=== PATIENT | female | born 1935 | race Caucasian/White ===

== ENCOUNTER 2017-12-21 23:20 | Inpatient (IN) | payer MEDICARE ==
[~2017-12-21 23:20] MED LIST changes: -ACET-2146 PO; -ACET-3017 PO; -ACET500T68 PO; -BACL-1 PO; -DULO60CA7 PEG; -LORA10CA3 PO; -NAPR500T75 PO; -OXYC5CAP21 PO
--- NOTE | 2017-12-21 23:26 | ER Report ---
History and Physical Time Seen By MD: 23:26 HPI/ROS This is an 82-year-old female with a past medical history of high blood pressure , essential tremor requiring deep brain stimulator, and a remote history of breast cancer. She bent forward to show her dog the dog door late last night when she lost her balance and fell forward onto her left shoulder. She did not strike her head. There was no loss of consciousness. She was brought in by paramedics complaining of 10 out of 10 pain in her left shoulder. Remainder of the 14 system rev: Yes Allergies: Coded Allergies: benazepril HCl (Verified Allergy, Unknown, COUGHING, 12/21/17) Uncoded Allergies: statins (Adverse Reaction, Intermediate, myalgia, 03/10/16) Home Meds Active Scripts Amlodipine Besylate (AMLODIPINE BESYLATE) 10 Mg Tablet, 1 TAB PO HS for 90 Days , #90 TAB 4 Refills Prov:AMINA SAVAGE MD 05/20/17 Losartan Potassium (LOSARTAN POTASSIUM) 100 Mg Tablet, 1 TAB PO QAM for 90 Days , #90 TAB 4 Refills Prov:AMINA SAVAGE MD 05/20/17 Reported Medications Loratadine (CLARITIN) 10 Mg Capsule, 10 MG PO PRN, CAPSULE 12/21/17 Baclofen (BACLOFEN) 10 Mg Tablet, 10 MG PO BID, #30 TAB 12/21/17 Acetaminophen (TYLENOL EXTRA STRENGTH) 500 Mg Tablet, 500 MG PO TID, TAB 12/21/17 Duloxetine HCl (Duloxetine HCl) 60 Mg Capsule.dr, 60 MG PEG DAILY 12/21/17 Aspirin (ASPIR 81) 81 Mg Tablet.dr, 1 TAB PO QDAY, TAB 03/18/17 Discontinued Scripts Fluticasone Prop 50 Mcg Ns (FLONASE 50 MCG NS) 16 Gm [place].susp, 1 SPRAY NS BID for 30 Days, #1 BOT 3 Refills Prov:AMINA SAVAGE MD 08/05/17 Propranolol Hcl (PROPRANOLOL HCL) 40 Mg Tablet, 1 TAB PO BID for 90 Days, #180 TAB 3 Refills Prov:AMINA SAVAGE MD 05/20/17 Duloxetine Hcl (CYMBALTA) 60 Mg Capsule.dr, 1 TAB PO QPM for 90 Days, #90 CAP 4 Refills Prov:AMINA SAVAGE MD 05/20/17 Capsaicin (CAPSAICIN) 42.5 Gm Cream..g., 42.5 GM TP QID for 90 Days, #3 TUBE 3 Refills Prov:AMINA SAVAGE MD 05/20/17 Reviewed Nurses Notes: Yes Old Medical Records Reviewed: Yes Hx Smoking: No Smoking Status: Never Smoker Hx Substance Use Disorder: No Hx Alcohol Use: Yes Constitutional Vital Sign - Last 24 Hours 12/21/17 12/21/17 12/22/17 12/22/17 23:21 23:38 00:30 00:34 Temp 97.6 Pulse 67 Resp 16 B/P (MAP) 170/80 167/89 (115) 170/83 (112) Pulse Ox 88 O2 Delivery Nasal Cannula O2 Flow Rate 2.0 12/22/17 12/22/17 12/22/17 12/22/17 00:35 00:38 00:40 00:45 Pulse 60 66 Resp 10 15 B/P (MAP) 181/95 (123) 190/84 (119) 190/105 (133) Pulse Ox 98 88 12/22/17 12/22/17 12/22/17 12/22/17 00:50 00:55 01:00 01:05 Pulse 65 64 ??? 61 Resp 15 31 12 23 B/P (MAP) 185/104 (131) 187/90 (122) 179/91 (120) 175/92 (119) Pulse Ox 86 100 100 100 12/22/17 12/22/17 12/22/17 12/22/17 01:10 01:15 01:16 01:20 Pulse 58 Resp 61 B/P (MAP) 193/102 (132) 168/141 (150) 165/98 (120) 182/94 (123) Pulse Ox 100 12/22/17 12/22/17 12/22/17 12/22/17 01:25 01:30 01:35 01:40 Pulse 60 64 Resp 21 11 14 B/P (MAP) 170/90 (116) 185/77 (113) 132/93 (106) 178/75 (109) Pulse Ox 100 85 74 12/22/17 12/22/17 12/22/17 01:45 01:50 01:55 Pulse 62 58 60 Resp 12 22 14 B/P (MAP) 183/99 (127) 169/78 (108) 183/91 (121) Pulse Ox 100 97 98 Physical Exam General Appearance: The patient is alert, has no immediate need for airway protection and no current signs of toxicity. Neck: Neck is supple and non tender Eyes: Pupils equal and round no injection. Respiratory: Chest is non tender, lungs are clear to auscultation. Cardiac: regular rate and rhythm Gastrointestinal: Abdomen is soft and non tender, no masses, bowel sounds normal. Musculoskeletal: TTP of the left shoulder with obvious dislocation. No TTP of the humerus or elbow. Skin: No rashes or lesions. Neuro: n/v in tact DIFFERENTIAL DIAGNOSIS: After history and physical exam differential diagnosis was considered for fracture, dislocation, vascular injury, other traumatic injuries Medical Decision Making ED Course/Re-evaluation ED Course Physician 82-year-old female who fell onto her left shoulder while she was trying to show her dog the dog door. Only complaint is pain in her left shoulder. There is an anterior inferior dislocation of the left shoulder. Multiple attempts were made by me to reduce the dislocated shoulder. She was sedated with propofol twice with adequate sedation. During both of the attempts the humeral head appeared to not move from its dislocated position. I spoke with Dr. Macedo about the dislocation. The plan will be to admit the patient to the hospitalist service and likely take her to the operating room tomorrow for a possible open reduction. I discussed this plan with both the patient and her family. The patient and her family are amenable to the plan. I also performed a hematoma block into the left shoulder joint to try to give the patient some relief from the pain in her shoulder. She is otherwise stable. Procedure Procedure: Procedural sedation. A pre-sedation evaluation was completed on the patient at 0115. Patient is an appropriate candidate for procedural sedation. The risks of the sedation were discussed with the patient. A time out was completed. The patient was reevaluated immediately prior to initiation of sedation. The patient was sedated with propofol. The patient was monitored with continuous pulse oximetry and clinical research monitor. There were no complications and no significant hypoxemia. I remained at the bedside for the sedation. The total time I spent in the procedural sedation was 45minutes. Post sedation evaluation: Patient was alert and cooperative, hemodynamically stable with appropriate respiratory status, temperature and pain control without ongoing nausea and vomiting. Procedure: Dislocation reduction. The shoulder was attempted to be reduced in the usual fashion without complications. Post reduction the patient's neurovascular exam is normal. Post reduction x-ray demonstrates reduction of the jointstill with an anterioinferior dislocation The procedure was performed by myself. Hematoma Block: I performed a hematoma block to the left glenohumeral joint using a combination of 5ml of 1% lidocaine and 5ml of bupivacaine. There was moderate relief of pain after the block. Decision to Disposition Date: Dec 22, 2017 Decision to Disposition Time: 01:56 Depart Departure Latest Vital Signs Vital Signs Date Time Temp Pulse Resp B/P (MAP) Pulse Ox O2 Delivery O2 Flow Rate FiO2 12/22/17 01:55 60 14 183/91 (121) 98 12/21/17 23:38 2.0 12/21/17 23:21 97.6 Nasal Cannula Impression: Primary Impression: Dislocation of left shoulder joint Additional Impression: Fall Condition: Improved Disposition: Admitted from ER Referrals: AMINA SAVAGE MD (PCP) Problem Qualifiers Primary Impression: Dislocation of left shoulder joint Encounter type: initial encounter Qualified Codes: S43.005A - Unspecified dislocation of left shoulder joint, initial encounter Additional Impression: Fall Encounter type: initial encounter Qualified Codes: W19.XXXA - Unspecified fall, initial encounter VAISHNAVI MARY MD Dec 21, 2017 23:26
[2017-12-21] MEDS ORDERED: DULO60CA7 PEG (23:31)
[2017-12-21] MEDS ORDERED: ACET500T68 PO (23:31)
[2017-12-21] MEDS ORDERED: LORA10CA3 PO (23:31)
[2017-12-21] MEDS ORDERED: BACL-1 PO (23:31)
[2017-12-21] MEDS ORDERED: ONDANSETRON 4 MG/2 ML VIAL IVP ONE (23:40)
[2017-12-21] MEDS ORDERED: MORPHINE 4 MG/ML SDV IVP ONE (23:40)
[2017-12-22] VITALS (14 sets, daily range): BP systolic 146–185; BP diastolic 60–90
[2017-12-22] MEDS ORDERED: PROPOFOL EMUL 10MG/ML 20 ML VL IVP ONE
--- NOTE | 2017-12-22 00:17 | RADIOLOGY IMAGING REPORT ---
FACILITY: [facility] PATIENT NAME: Tiffany Long : 1935 MR: [id number] V: [id number] EXAM DATE: ORDERING PHYSICIAN: VAISHNAVI MARY TECHNOLOGIST: Location: [facility] Patient: Tiffany Long : 1935 Visit/Account:[id number] Date of Sevice: 12/21/2017 SHOULDER MIN 2 VIEWS LEFT HISTORY: Fall. Left shoulder pain. COMPARISON: None. Chest x-ray was performed concurrently. TECHNIQUE: AP and scapular Y views of the left shoulder. FINDINGS: There is anteroinferior glenohumeral dislocation. No fracture. Acromioclavicular joint is n ormal. There are surgical clips at the left axilla, and there is a battery pack projecting over the left low er chest. Lead terminates off the superior x-ray in the patient's neck. There is mild to moderate desiccation of the aorta. There is mild degenerative change of the spine. T he visible thorax is normal. IMPRESSION: 1. Anterior left glenohumeral dislocation. No fracture. Report Dictated By: Sun Parker at 12/22/2017 12:11 AM Report E-Signed By: Sun Parker at 12/22/2017 12:13 AM WSN:[id number]
--- NOTE | 2017-12-22 00:18 | RADIOLOGY IMAGING REPORT ---
FACILITY: [facility] PATIENT NAME: Tiffany Long : 1935 MR: [id number] V: [id number] EXAM DATE: ORDERING PHYSICIAN: VAISHNAVI MARY TECHNOLOGIST: [place] [facility] [place] Patient: Tiffany Long : 1935 Visit/Account:[id number] Date of Sevice: 12/21/2017 CHEST SINGLE AP 12/21/2017 23:38 hours. HISTORY: Fall. Left shoulder pain. COMPARISON: Chest x-rays 11/09/2016 and studies dating to 05/30/2006. Left shoulder x-rays were perform ed concurrently. TECHNIQUE: Portable AP view of the chest. FINDINGS: Tubes/lines/hardware: There are bilateral battery packs projecting at the right and left mid to lower chest, and leads terminate off the superior x-ray, overlying the patient's neck. There are surgical clips at the left axilla. Pulmonary: Right lung is clear. There is minimal atelectasis or scarring at the left base, unchanged. There is no pneumothorax or pleural effusion. Cardiomediastinal: Cardiac and mediastinal silhouettes are within normal limits. There is mild to mod erate aortic calcification. Bones/soft tissues: There is anteroinferior dislocation of the left humeral head compared to the jovany oid. No fracture. The lumbar spine angles to the left. There is a slight rightward curvature of the t horacic spine. The visible abdomen is normal. IMPRESSION: 1. No acute cardiopulmonary process. 2. Anterior left shoulder dislocation. Report Dictated By: Sun Parker at 12/22/2017 12:13 AM Report E-Signed By: Sun Parker at 12/22/2017 12:16 AM WSN:[id number]
[2017-12-22] MEDS ORDERED: MORPHINE 4 MG/ML SDV IVP ONE (01:05)
[2017-12-22] MEDS ORDERED: NS(*) 0.9% 1000 ML BAG 1,000 ML IV ONE (01:20)
[2017-12-22 02:30] LABS: PLATELET COUNT, AUTOMATED 195 K/uL (150-450)
[2017-12-22] MEDS ORDERED: NS(*) 0.9% 1000 ML BAG 1,000 ML IV PRN (02:55)
[2017-12-22] MEDS ORDERED: ONDANSETRON 4 MG/2 ML VIAL IVP PRN (02:55)
[2017-12-22] MEDS ORDERED: ACETAMINOPHEN 325 MG TAB PO PRN (02:55)
[2017-12-22] MEDS: MORPHINE 2 MG/ML SYR IVP PRN ×2 (03:48→09:42)
--- NOTE | 2017-12-22 05:46 | History & Physical ---
History of Present Illness Chief Complaint s/p Fall with L-shoulder pain History of Present Illness Mrs. Long is an 82-year-old female with a past medical history of high blood pressure, essential tremor requiring deep brain stimulator, and a remote history of breast cancer. She bent forward to show her dog the dog door late last night when she lost her balance and fell forward onto her left shoulder. She did not strike her head. There was no loss of consciousness. She was brought in by paramedics complaining of 10 out of 10 pain in her left shoulder. ER evaluation revealed that there was an anterior inferior dislocation of the left shoulder. Multiple attempts were made by the ER-MD to reduce the dislocated shoulder. She was sedated with propofol twice with adequate sedation. During both of the attempts the humeral head appeared to not move from its dislocated position. Dr. Castorena spoke with Dr. Macedo about the dislocation. The plan will be to admit the patient to the hospitalist service and likely take her to the operating room tomorrow for a possible open reduction. Dr. Castorena discussed this plan with both the patient and her family. The patient and her family are amenable to the plan. Dr. Castorena also performed a hematoma block into the left shoulder joint to try to give the patient some relief from the pain in her shoulder. She was otherwise stable. Post reduction x -ray demonstrates reduction of the joint still with an anterioinferior dislocation. I discussed the patient with Dr. Castorena and admitted the patient for further evaluation and management and possible surgical reduction of the shoulder in am. Patient is AAOx3 and denies any significant complaint. She denies having any syncopal episode or stroke. She has mild slurred speech but she said whenever she takes narcotics she gets like that. She denies any weakness of her U & LE. She denies dysphagia. History Home Meds Active Scripts Amlodipine Besylate (AMLODIPINE BESYLATE) 10 Mg Tablet, 1 TAB PO HS for 90 Days , #90 TAB 4 Refills Prov:AMINA SAVAGE MD 05/20/17 Losartan Potassium (LOSARTAN POTASSIUM) 100 Mg Tablet, 1 TAB PO QAM for 90 Days , #90 TAB 4 Refills Prov:AMINA SAVAGE MD 05/20/17 Reported Medications Loratadine (CLARITIN) 10 Mg Capsule, 10 MG PO PRN, CAPSULE 12/21/17 Baclofen (BACLOFEN) 10 Mg Tablet, 10 MG PO BID, #30 TAB 12/21/17 Acetaminophen (TYLENOL EXTRA STRENGTH) 500 Mg Tablet, 500 MG PO TID, TAB 12/21/17 Duloxetine HCl (Duloxetine HCl) 60 Mg Capsule.dr, 60 MG PEG DAILY 12/21/17 Aspirin (ASPIR 81) 81 Mg Tablet.dr, 1 TAB PO QDAY, TAB 03/18/17 Discontinued Scripts Fluticasone Prop 50 Mcg Ns (FLONASE 50 MCG NS) 16 Gm [place].susp, 1 SPRAY NS BID for 30 Days, #1 BOT 3 Refills Prov:AMINA SAVAGE MD 08/05/17 Propranolol Hcl (PROPRANOLOL HCL) 40 Mg Tablet, 1 TAB PO BID for 90 Days, #180 TAB 3 Refills Prov:AMINA SAVAGE MD 05/20/17 Duloxetine Hcl (CYMBALTA) 60 Mg Capsule.dr, 1 TAB PO QPM for 90 Days, #90 CAP 4 Refills Prov:AMINA SAVAGE MD 05/20/17 Capsaicin (CAPSAICIN) 42.5 Gm Cream..g., 42.5 GM TP QID for 90 Days, #3 TUBE 3 Refills Prov:AMINA SAVAGE MD 05/20/17 Allergies: Coded Allergies: benazepril HCl (Verified Allergy, Unknown, COUGHING, 12/21/17) Uncoded Allergies: statins (Adverse Reaction, Intermediate, myalgia, 03/10/16) Patient History: FH: COPD (chronic obstructive pulmonary disease) BROTHER OR SISTER FH: cancer FATHER, , Age:83 Hx Smoking: No Smoking Status: Never Smoker Caffeine Intake: Coffee, Tea Caffeine/Cups Per Day: 2 Hx Alcohol Use: Yes Alcohol Used: Beer, Wine Hx Substance Use Disorder: No Social Drug Use: Never Review of Systems Constitutional: No Fever, No Weight Loss, No Weight Gain, No Chills Neurological: Slurred Speech, No Syncope, No Confusion, No Weakness, No Dizziness Eyes: No Loss of Vision Cardiovascular: No Chest Pain, No Palpitations Respiratory: No Shortness of Breath, No Cough Gastrointestinal: No Nausea, No Vomiting, No Diarrhea, No Dysphagia, No Abdominal Pain Genitourinary: No Dysuria, No Hematuria Musculoskeletal: No Pain, No Sprain, No Strain Psychiatric: No Depression, No Anxiety Exam Vital Signs Vital Signs Date Time Temp Pulse Resp B/P (MAP) Pulse Ox O2 Delivery O2 Flow Rate FiO2 12/22/17 04:44 90 Nasal Cannula 2.0 12/22/17 02:46 97.4 71 14 181/79 (113) General Appearance: Alert, Awake, No Acute Distress, Afebrile Neuro: No Gross deficits (mild facial droop noted) Eyes: PERRLA ENT: Normal Cardiovascular: Normal Rhythm & Peripheral Pulses Respiratory: No Respiratory Distress GI: Abd Soft and Non-Tender Musculoskeletal: Other (decrease ROM of L-shoulder with tenderness) Extremities: Soft and Non Tender, Warm, Pulses Psych: Alert & Oriented X3, Appropriate Mood & Affect Medical Decision Making Data Points Result Diagram: 12/22/1720312/22/17203 reviewed Pre-Admit Course ED Medications reviewed Medical Record Review: Yes Assessment and Plan Problems: (1) Dislocation of left shoulder joint Status: Acute Assessment & Plan: I will admit the patient to Med/Surg unit for further evaluation and management I will Start Morphine Sulphate 2mg IN q4h as needed for pain I will start IVF NS at 60ml/h I will get orthopedic consult for dislocated L-shoulder I will place SCD's for DVTP If she demonstrate any neurological symptoms, I would get head CT scan to r/o CVA (2) Hypertension Status: Chronic Assessment & Plan: I will start Amlodipine 5mg po for her BP for now I will hold her Losartan 100mg po daily until her surgery I will hold her Norvasc 10mg po daily until her surgery I will keep her NPO for now and low salt diet after her surgery I will resume her home meds after her surgery (3) Slurred speech Status: Acute Assessment & Plan: I will closely watch her neurological symptoms and her speech I would obtain CT scan of the head if she demonstrate any neurological symptoms. Central Venous Access Medical Necessity for Access: IV Access, Medication Administration Time Spent on Plan of Care: < 30 min Copies to: AMINA SAVAGE MD Venous Thromboembolism VTE Risk Physician Assess for VTE Risk: Yes Patient's VTE Risk: Low VTE Diagnostic Test 2 Days Prior to Admit: No Antithrombotics Is Pt On Any Antithrombotics?: No Exam Sepsis Risk: No Definite Risk Problem Qualifiers (1) Dislocation of left shoulder joint: Encounter type: initial encounter Qualified Codes: S43.005A - Unspecified dislocation of left shoulder joint, initial encounter MARGOT BURROUGHS MD Dec 22, 2017 05:46
[2017-12-22] MEDS ORDERED: amLODIPine BESYL(*) 5 MG TAB PO ONE (06:15)
[2017-12-22 06:51] LABS: PLATELET COUNT, AUTOMATED 202 K/uL (150-450)
--- NOTE | 2017-12-22 08:36 | EKG ---
FACILITY: [facility] PATIENT NAME: OVIDIO FALLON : [id number] MR: [id number] V: [id number] EXAM DATE: ORDERING PHYSICIAN: VAISHNAVI MARY TECHNOLOGIST: KARLY Test Reason : PRE-OP SHOULDER Blood Pressure : / mmHG Vent. Rate : 061 BPM Atrial Rate : 061 BPM P-R Int : 186 ms QRS Dur : 074 ms QT Int : 454 ms P-R-T Axes : 078 046 072 degrees QTc Int : 457 ms Normal sinus rhythm Low voltage QRS No ST-T abnormalities When compared with ECG of 18-JUN-2015 19:44, Relativeliy unchanged Confirmed by JAGUAR CLEMENTE ([id number]) on 12/22/2017 11:28:12 AM Referred By: USMAN Confirmed By:JAGUAR CLEMENTE
[2017-12-22] MEDS ORDERED: NORMOSOL R SOLN(*) 1000 ML BAG 1,000 ML IV ONE (09:41)
[2017-12-22] MEDS ORDERED: FAMOTIDINE 20 MG TAB PO ONE (10:15)
[2017-12-22] MEDS ORDERED: LIDOCAINE/SOD BICARB 8.4% SYR ID ONE (10:45)
[2017-12-22] MEDS ORDERED: ceFAZolin(*) 2GM/D5W 50ML 50 ML IVPB ONE (14:15)
[2017-12-22] MEDS ORDERED: HYDROmorphone HCL 2 MG/ML SDV IVP ONE (14:35)
[2017-12-22] MEDS ORDERED: PROPOFOL EMUL(*) 10MG/ML 20 ML 20 ML ONE (14:55)
[2017-12-22] MEDS ORDERED: SUCCINYLCHOL CHL 200MG/10ML VL ONE (14:55)
[2017-12-22] MEDS ORDERED: ACETAMIN/CODEINE #3 300-30 MG PO ONE (15:47)
--- NOTE | 2017-12-22 15:59 | RADIOLOGY IMAGING REPORT ---
FACILITY: [facility] PATIENT NAME: Tiffany Long : 1935 MR: [id number] V: [id number] EXAM DATE: ORDERING PHYSICIAN: GERTRUDE CALIXTO TECHNOLOGIST: Location: [facility] Patient: Tiffany Long : 1935 Visit/Account:[id number] Date of Sevice: 12/22/2017 Exam type: C-ARM FLUORO 1 HR History: CLOSED REDUCTION SHOULDER Comparison: None. Findings: Three intraoperative views of the left shoulder demonstrate of the left shoulder in good anatomic ali gnment on the AP views. The total fluoroscopy time was 14.7 seconds. The 2 mm contiguous possibly d ose was 0.04579 mGray per meter squared IMPRESSION: 1. As above Report Dictated By: Dorcas Fisher MD at 12/22/2017 3:54 PM Report E-Signed By: Dorcas Fisher MD at 12/22/2017 3:55 PM WSN:[id number]
--- NOTE | 2017-12-22 16:30 | OPERATIVE REPORT 1 ---
EVENT DATE: December 22, 2017 SURGEON: Joel Jara MD ANESTHESIOLOGIST: Nicko Dorman MD ANESTHESIA: Propofol. VP PUBLISHER DEVELOPMENT: None. PREOPERATIVE DIAGNOSIS Left shoulder anteroinferior dislocation, unable to be reduced in the Emergency Department. POSTOPERATIVE DIAGNOSIS Left shoulder anteroinferior dislocation, unable to be reduced in the Emergency Department. PROCEDURE PERFORMED Closed reduction left shoulder anteroinferior dislocation. ESTIMATED BLOOD LOSS None. DRAINS None. SPECIMENS None. COMPLICATIONS None apparent. INDICATIONS Tiffany is an 82-year-old woman who fell and caught her arm on her furniture and sustained an anteroinferior dislocation. The emergency department physician apparently struggled for a number of hours attempting to reduce this and was unsuccessful. Orthopedics was consulted. Dr. Macedo has asked me to manage her case. DESCRIPTION OF PROCEDURE The patient was taken to the operating room and placed supine on the operating table. Propofol anesthesia was induced. When the patient was satisfactorily relaxed, gentle manipulative reduction is performed, and the arm drops back into place easily. This is fairly unstable and with abduction tends to drop out inferiorly, but this drops right back in with the arm adducted to the side in the form of across the belly. She is stable and congruently aligned with C- arm views. The UltraSling is left in place with the arm in this position. Final image confirms satisfactory reduction. Patient awakened from anesthesia and taken to the recovery room in satisfactory condition having tolerated the procedure well. PLAN Immobilize the arm over the next week and then begin gentle range of motion and physical rehab. BLANCHE
[2017-12-22] MEDS ORDERED: NAPR500T75 PO (17:07)
[2017-12-22] MEDS ORDERED: ACET-2146 PO (17:07)
[2017-12-22] MEDS ORDERED: OXYC5CAP21 PO (17:07)
[2017-12-22] MEDS ORDERED: NAPROXEN 500 MG TAB PO PRN (17:20)
[2017-12-22] MEDS ORDERED: oxyCODONE HCL 5 MG CAP PO PRN (17:20)
[2017-12-22] MEDS ORDERED: cloNIDine HCL 0.1 MG TAB PO PRN (17:20)
[2017-12-22] MEDS ORDERED: DULoxetine HCL 30 MG CAPCR PO SCH (21:00)
[2017-12-22] MEDS ORDERED: amLODIPine BESYL(*) 5 MG TAB PO SCH (21:00)
[2017-12-23 04:17] VITALS: BP 137/93
[2017-12-23 07:52] VITALS: BP 146/71
--- NOTE | 2017-12-23 08:36 | Hospitalist Depart ---
Discharge Summary Reason for Hosp/Final Diag: (1) Dislocation of left shoulder joint Status: Acute Hospital Course & Plan: She was admitted to the with a dislocated left shoulder. Ortho was consulted. She went to surgery yesterday with success at relocation. She will be sent home with pain medications. (2) Hypertension Status: Chronic Hospital Course & Plan: She is on chronic treatment with amlodipine. Her blood pressures have been elevated during admission. Recommend follow up within 1-2 weeks with PCP for BP evaluation. (3) Slurred speech Status: Acute Hospital Course & Plan: No symptoms exhibited. Departure Latest Vital Signs Vital Signs 12/23/17 07:52 Temp 98.4 Pulse 63 Resp 12 B/P (MAP) 146/71 (96) Pulse Ox 94 O2 Delivery Nasal Cannula O2 Flow Rate 0.5 Weight (Pounds): 189 Result Diagram: 12/22/1752212/22/17522 Condition: Improved Discharge: Home, Self Care Discharge Instructions Home Meds Active Scripts Oxycodone Hcl (OXYCODONE HCL) 5 Mg Capsule, 5 MG PO Q6H Y for pain, #5 CAPSULE Prov:JAGUAR CLEMENTE MD 12/22/17 Acetaminophen 500 Mg Tab (ACETAMINOPHEN EXTRA STRENGTH) 500 Mg Tablet, 1000 MG PO Q8H Y for pain for 7 Days, TAB Prov:JAGUAR CLEMENTE MD 12/22/17 Naproxen (NAPROSYN) 500 Mg Tablet, 500 MG PO Q12H Y for pain, #10 TAB Prov:JAGUAR CLEMENTE MD 12/22/17 Amlodipine Besylate (AMLODIPINE BESYLATE) 10 Mg Tablet, 1 TAB PO HS for 90 Days , #90 TAB 4 Refills Prov:AMINA SAVAGE MD 05/20/17 Reported Medications Loratadine (CLARITIN) 10 Mg Capsule, 10 MG PO PRN, CAPSULE 12/21/17 Duloxetine HCl (Duloxetine HCl) 60 Mg Capsule., 60 MG PEG DAILY 12/21/17 Aspirin (ASPIR 81) 81 Mg Tablet.dr, 1 TAB PO QDAY, TAB 03/18/17 Discontinued Reported Medications Baclofen (BACLOFEN) 10 Mg Tablet, 10 MG PO BID, #30 TAB 12/21/17 Acetaminophen (TYLENOL EXTRA STRENGTH) 500 Mg Tablet, 500 MG PO TID, TAB 12/21/17 Discontinued Scripts Fluticasone Prop 50 Mcg Ns (FLONASE 50 MCG NS) 16 Gm [place].susp, 1 SPRAY NS BID for 30 Days, #1 BOT 3 Refills Prov:AMINA SAVAGE MD 08/05/17 Propranolol Hcl (PROPRANOLOL HCL) 40 Mg Tablet, 1 TAB PO BID for 90 Days, #180 TAB 3 Refills Prov:AMINA SAVAGE MD 05/20/17 Duloxetine Hcl (CYMBALTA) 60 Mg Capsule.dr, 1 TAB PO QPM for 90 Days, #90 CAP 4 Refills Prov:AMINA SAVAGE MD 05/20/17 Capsaicin (CAPSAICIN) 42.5 Gm Cream..g., 42.5 GM TP QID for 90 Days, #3 TUBE 3 Refills Prov:AMINA SAVAGE MD 05/20/17 Diet: Regular Activity: As Tolerated Copies to: AMINA SAVAGE MD Venous Thromboembolism Antithrombotics Is Pt On Any Antithrombotics?: No Problem Qualifiers (1) Dislocation of left shoulder joint: Encounter type: initial encounter Qualified Codes: S43.005A - Unspecified dislocation of left shoulder joint, initial encounter DAYLIN SANTO WHEEL MILL OPERATOR Dec 23, 2017 08:36
[2017-12-23] MEDS ORDERED: ACET-3017 PO (10:04)
== END 2017-12-23 11:03 | disposition home or self-care (01) | DRG 563 ==
LOC: ER 23:26 → MED 12-22 02:02
PROVIDERS: ADMIT Specialist; ATTEND Specialist
PROC: 0RSKXZZ Reposition Left Shoulder Joint, External Approach (ICD-10-PCS; 2017-12-21)
PROC: 0RSKXZZ Reposition Left Shoulder Joint, External Approach (ICD-10-PCS; principal; 2017-12-22 15:04)
DX: S43.005A Unspecified dislocation of left shoulder joint, initial encounter (principal); I10 Essential (primary) hypertension; R47.81 Slurred speech; G25.0 Essential tremor; Z85.3 Personal history of malignant neoplasm of breast; Z88.8 Allergy status to other drugs, medicaments and biological substances; W18.39XA Other fall on same level, initial encounter; Y93.K9 Activity, other involving animal care; Y92.009 Unspecified place in unspecified non-institutional (private) residence as the place of occurrence of the external cause; Y99.8 Other external cause status; Z96.89 Presence of other specified functional implants; Z96.641 Presence of right artificial hip joint
CPT/HCPCS: 36415; 71045; 76000; 82040; 82247; 82310; 82374; 82435; 82565; 82947; 84075; 84132; 84155; 84295; 84450; 84460; 84520; 85025; 85610; 85730; 86850; 86900; 86901; 93005; 99152; 99153; J0330; J1170; J2270; J2405; J2704; J7030; L3670

== ENCOUNTER → 2017-12-21 | Outpatient (CLI) | payer MEDICARE ==
[~2017-12-21] MED LIST: ACET-2031 PO; ACET-2146 PO; ACET-3017 PO; ACET500T68 PO; AMLO-96 PO; AMLO-99 PO; AMLO2.5T75 PO; ASPI-1471 PO; BACL-1 PO; CALC500T6 PO; CHOL500045 PO; CLON-298 PO; COM14R INH; CYAN20003 PO; DULO60CA56 PO; DULO60CA7 PEG; EZET10TA41 PO; FLU45SYR25 IM ONLY; FLUT16SP19 NS; FURO-45 PO; GABA-490 PO; GABA-549 PO; HYDR-389 PO; LOR5/325 PO; LORA10CA3 PO; LOSA100T67 PO; NAPR500T75 PO; NIAC500T12 PO; NIT4 SL; NITT TD; ONDA4TAB PO; OXYC5CAP21 PO; PNEU0.5D3 IM; PREG75CA60 PO; PRIM250T73 PO; PRIM50TA PO; PROP40TA45 PO; RIV10 PO; [UNRECOGNIZED DRUG - CODE] PO; [UNRECOGNIZED DRUG - CODE] TP
== END ==
LOC: AMB 22:24
PROVIDERS: ATTEND Nurse Practitioner
DX: M25.512 Pain in left shoulder (principal); W18.31XA Fall on same level due to stepping on an object, initial encounter; Y92.480 Sidewalk as the place of occurrence of the external cause
CPT/HCPCS: A0425; A0427

== ENCOUNTER → 2018-03-23 | Outpatient (CLI) | payer MEDICARE ==
[~2018-03-23] MED LIST changes: +ACET-2146 PO; +ACET-3017 PO; +ACET500T68 PO; +AMLO-111 PO; +AMLO-113 PO; -AMLO-96 PO; -AMLO-99 PO; +BACL-1 PO; -CLON-298 PO; +CLON-331 PO; +DICL100G39 TOP; +DULO30CA35 PO; +DULO60CA7 PO; +LORA10CA3 PO; -LOSA100T67 PO; +LOSA100T69 PO; +NAPR500T75 PO; +OXYC5CAP21 PO; +PRI250 PO
== END ==
LOC: LAB 15:07
PROVIDERS: ATTEND Psychiatry & Neurology Neurology
DX: R20.0 Anesthesia of skin (principal); R26.89 Other abnormalities of gait and mobility
CPT/HCPCS: 36415; 82525; 82607; 82746; 84207; 84446

== ENCOUNTER → 2018-08-24 | Outpatient (REF) | payer MEDICARE ==
[~2018-08-24] MED LIST changes: -AMLO-111 PO; -AMLO-113 PO; +AMLO-125 PO; +AMLO-127 PO; -LOSA100T69 PO; +LOSA100T75 PO
== END ==
LOC: ZZSENDIN 16:59
PROVIDERS: ATTEND Family Medicine
DX: Z57.8 Occupational exposure to other risk factors (principal)

== ENCOUNTER → 2018-08-24 | Outpatient (REF) | payer MEDICARE | PROVIDERS: ATTEND Family Medicine | DX: E53.9 Vitamin B deficiency, unspecified (principal) | CPT/HCPCS: 80074; 82607; G0432; 86703 ==